=== PATIENT | male | born 1990 | race Caucasian/White ===

== ENCOUNTER 2018-08-10 20:15 | Emergency (ER) | payer BC ==
[2018-08-10 20:20] VITALS: TEMP 98
[2018-08-10] MEDS ORDERED: SODIUM CHLORIDE 0.9% 500 ML 500 ML IV STA (22:10)
[2018-08-10] MEDS ORDERED: ONDANSETRON 4 MG/2 ML VIAL IVP STA (22:10)
[2018-08-10 22:29] VITALS: BP 121/78; PULSE 77; RESP 20
[2018-08-10 22:32] LABS: Basophils % (A) 0 %; Eosinophils # (A) 0.1 k/uL (0-0.7); Eosinophils % (A) 1 %; HGB 16.1 gm/dL (13.0-17.5); Lymphocytes # (A) 0.6 k/uL (1.0-4.8); Lymphocytes % (A) 7 %; MCH 30.6 pg (25.0-35.0); MCHC 34.9 g/dL (31.0-37.0); MCV 87.6 fL (80.0-100.0); Mean Platelet Volume 7.7; Monocytes # (A) 0.5 k/uL (0-1.0); Monocytes % (A) 5 %; Neutrophils # (A) 8.3 k/uL (1.3-7.7); Neutrophils % (A) 86 %; Platelet Count 199 k/uL (150-450); RBC 5.25 m/uL (4.30-5.90); RDW 12.5 % (11.5-15.5); WBC 9.7 k/uL (3.8-10.6)
[2018-08-10 22:49] LABS: ALT 43 U/L (21-72); AST 36 U/L (17-59); Albumin 4.5 g/dL (3.5-5.0); Alkaline Phosphatase 87 U/L (38-126); Amylase 72 U/L (30-110); Anion Gap 10 mmol/L; Blood Urea Nitrogen 14 mg/dL (9-20); Calcium 9.8 mg/dL (8.4-10.2); Carbon Dioxide 26 mmol/L (22-30); Chloride 102 mmol/L (98-107); Glucose 97 mg/dL (74-99); Lipase 94 U/L (23-300); Potassium 3.9 mmol/L (3.5-5.1); Sodium 138 mmol/L (137-145); Total Bilirubin 1.1 mg/dL (0.2-1.3); Total Protein 7.9 g/dL (6.3-8.2)
[2018-08-11] MEDS ORDERED: SODIUM CHLORIDE 0.9% 1,000 ML BAG ONE (02:04)
[2018-08-11] MEDS ORDERED: FAMOTIDINE 20 MG/2 ML VIAL ONE (02:04)
== END 2018-08-11 02:04 | disposition home or self-care (01) ==
LOC: EC 20:15
DX: R10.13 Epigastric pain (principal); R11.2 Nausea with vomiting, unspecified; Z91.09 Other allergy status, other than to drugs and biological substances
CPT/HCPCS: 36415; 80053; 82150; 83690; 85025; 99284; 96374; 96375; 96376; 96361; J2405

== ENCOUNTER 2019-06-18 05:57 | Emergency (ER) | payer BC ==
[2019-06-18 06:06] VITALS: TEMP 98.3
[2019-06-18] MEDS ORDERED: SODIUM CHLORIDE 0.9% 1,000 ML IV STA (06:29)
[2019-06-18] MEDS ORDERED: KETOROLAC 30 MG/ML 1 ML VIAL IVP STA (06:30)
--- NOTE | 2019-06-18 06:33 | ED ---
General Adult HPI - General Source: patient, RN notes reviewed, old records reviewed Mode of arrival: wheelchair Limitations: no limitations <Good Hernandez - Last Filed: 06/18/19 06:55> <Good Pham - Last Filed: 06/18/19 08:25> - General Chief complaint: Nausea/Vomiting/Diarrhea Stated complaint: Weak, light headed Time Seen by Provider: 06/18/19 06:07 - History of Present Illness Initial comments: 28-year-old male history of bipolar depression presenting for evaluation of anxiety, headache, and abdominal pain with nausea. Patient states his symptoms began this morning he had felt like he was having a panic attack. He has had issues in the past with panic attacks. He also reports an associated headache which is biparietal, periumbilical abdominal pain nausea. He admits to hyperventilating and knows that this is associated with panic attacks. He does feel somewhat anxious but is uncertain why he is anxious. Denies suicidal or homicidal ideation. He admits to alcohol consumption, denies drugs of abuse. (Good Hernandez) - Related Data Home Medications Medication Instructions Recorded Confirmed No Known Home Medications 08/10/18 08/10/18 Allergies Allergy/AdvReac Type Severity Reaction Status Date / Time Sulfa (Sulfonamide Allergy Rash/Hives Verified 06/18/19 06:06 Antibiotics) prochlorperazine AdvReac Unknown Verified 06/18/19 06:06 [From Compazine] Review of Systems ROS Other: All systems not noted in ROS Statement are negative. <Good Hernandez - Last Filed: 06/18/19 06:55> ROS Other: All systems not noted in ROS Statement are negative. <Good Pham - Last Filed: 06/18/19 08:25> ROS Statement: Those systems with pertinent positive or pertinent negative responses have been documented in the HPI. Past Medical History Past Medical History: No Reported History History of Any Multi-Drug Resistant Organisms: None Reported Past Surgical History: No Surgical Hx Reported Additional Past Surgical History / Comment(s): Mood disorder Past Psychological History: No Psychological Hx Reported Smoking Status: Former smoker Past Alcohol Use History: Occasional Past Drug Use History: None Reported <Good Hernandez - Last Filed: 06/18/19 06:55> General Exam Limitations: no limitations General appearance: alert, in no apparent distress Head exam: Present: atraumatic, normocephalic Eye exam: Present: normal appearance, PERRL ENT exam: Present: mucous membranes dry Neck exam: Present: normal inspection. Absent: tenderness, meningismus Respiratory exam: Present: normal lung sounds bilaterally. Absent: respiratory distress, wheezes Cardiovascular Exam: Present: normal rhythm GI/Abdominal exam: Present: soft, tenderness (Minimal periumbilical tenderness). Absent: distended Extremities exam: Present: normal inspection, normal capillary refill, pedal edema. Absent: calf tenderness Neurological exam: Present: alert, oriented X3, CN II-XII intact. Absent: motor sensory deficit Psychiatric exam: Present: depressed, anxious, flat affect. Absent: suicidal ideation Skin exam: Present: warm, dry, intact. Absent: cyanosis, diaphoretic <Good Hernandez - Last Filed: 06/18/19 06:55> Course Vital Signs 06/18/19 06:03 Temperature 98.3 F Pulse Rate 98 Respiratory 32 H Rate Blood Pressure 126/67 O2 Sat by Pulse 100 Oximetry EKG Findings - EKG Comments: EKG Findings:: EKG: Normal sinus rhythm rate of 87, MO interval 150, QRS duration 100, QTC 452, T-wave flattening in inferior leads and lateral precordial leads. <Good Hernandez - Last Filed: 06/18/19 06:55> Medical Decision Making - Lab Data Result diagrams: 06/18/19 06:34 <Good Hernandez - Last Filed: 06/18/19 06:55> - Lab Data Result diagrams: 06/18/19 06:34 06/18/19 06:34 - Radiology Data Radiology results: report reviewed (I did review the imaging and report no acute findings.), image reviewed <Good Pham - Last Filed: 06/18/19 08:25> - Medical Decision Making I did reevaluate the patient. He is feeling improved he did state he had an episode of lightheadedness during x-ray but sensitivities felt fine. Imaging was reviewed as well as lab work. Patient will be discharged the presentation is consistent with a panic attack as well as likely some (Good Pham) - Lab Data Lab Results 06/18/19 06/18/19 06/18/19 Range/Units 06:34 06:34 06:34 WBC 10.0 (3.8-10.6) k/uL RBC 5.15 (4.30-5.90) m/uL Hgb 15.3 (13.0-17.5) gm/dL Hct 45.4 (39.0-53.0) % MCV 88.0 (80.0-100.0) fL MCH 29.7 (25.0-35.0) pg MCHC 33.7 (31.0-37.0) g/dL RDW 11.9 (11.5-15.5) % Plt Count 199 (150-450) k/uL Neutrophils % 85 % Lymphocytes % 5 % Monocytes % 6 % Eosinophils % 1 % Basophils % 2 % Neutrophils # 8.5 H (1.3-7.7) k/uL Lymphocytes # 0.5 L (1.0-4.8) k/uL Monocytes # 0.6 (0-1.0) k/uL Eosinophils # 0.1 (0-0.7) k/uL Basophils # 0.2 (0-0.2) k/uL Sodium 139 (137-145) mmol/L Potassium 3.5 (3.5-5.1) mmol/L Chloride 103 (98-107) mmol/L Carbon Dioxide 25 (22-30) mmol/L Anion Gap 11 mmol/L BUN 13 (9-20) mg/dL Creatinine 0.95 (0.66-1.25) mg/dL Est GFR (CKD-EPI)AfAm >90 (>60 ml/min/1.73 sqM) Est GFR (CKD-EPI)NonAf >90 (>60 ml/min/1.73 sqM) Glucose 111 H (74-99) mg/dL Calcium 9.9 (8.4-10.2) mg/dL Total Bilirubin 1.1 (0.2-1.3) mg/dL AST 34 (17-59) U/L ALT 37 (21-72) U/L Alkaline Phosphatase 92 (38-126) U/L Total Protein 8.1 (6.3-8.2) g/dL Albumin 4.6 (3.5-5.0) g/dL Lipase 60 (23-300) U/L Urine Color Yellow Urine Appearance Clear (Clear) Urine pH 8.5 H (5.0-8.0) Ur Specific [place] 1.018 (1.001-1.035) Urine Protein Trace H (Negative) Urine Glucose (UA) Negative (Negative) Urine Ketones Negative (Negative) Urine Blood Negative (Negative) Urine Nitrite Negative (Negative) Urine Bilirubin Negative (Negative) Urine Urobilinogen 2.0 (<2.0) mg/dL Ur Leukocyte Esterase Trace H (Negative) Urine RBC 1 (0-5) /hpf Urine WBC <1 (0-5) /hpf Urine Mucus Rare H (None) /hpf Urine Opiates Screen Not Detected (NotDetected) Ur Oxycodone Screen Not Detected (NotDetected) Urine Methadone Screen Not Detected (NotDetected) Ur Propoxyphene Screen Not Detected (NotDetected) Ur Barbiturates Screen Not Detected (NotDetected) U Tricyclic Antidepress Not Detected (NotDetected) Ur Phencyclidine Scrn Not Detected (NotDetected) Ur Amphetamines Screen Not Detected (NotDetected) U Methamphetamines Scrn Not Detected (NotDetected) U Benzodiazepines Scrn Not Detected (NotDetected) Urine Cocaine Screen Not Detected (NotDetected) U Marijuana (THC) Screen Not Detected (NotDetected) Serum Alcohol <10 mg/dL Disposition <Good Hernandez - Last Filed: 06/18/19 06:55> Is patient prescribed a controlled substance at d/c from ED?: No <Good Pham - Last Filed: 06/18/19 08:25> Clinical Impression: Spastic colon, Anxiety Disposition: HOME SELF-CARE Condition: Good Instructions (If sedation given, give patient instructions): Anxiety (ED), Irritable Bowel Syndrome (ED) Referrals: None,Stated [Primary Care Provider] - 1-2 days
[2019-06-18 06:53] LABS: Basophils # (A) 0.2 k/uL (0-0.2); Basophils % (A) 2 %; Eosinophils # (A) 0.1 k/uL (0-0.7); Eosinophils % (A) 1 %; HCT 45.4 % (39.0-53.0); HGB 15.3 gm/dL (13.0-17.5); Lymphocytes # (A) 0.5 k/uL (1.0-4.8); Lymphocytes % (A) 5 %; MCH 29.7 pg (25.0-35.0); MCHC 33.7 g/dL (31.0-37.0); Mean Platelet Volume 7.7; Monocytes # (A) 0.6 k/uL (0-1.0); Monocytes % (A) 6 %; Neutrophils # (A) 8.5 k/uL (1.3-7.7); Neutrophils % (A) 85 %; Platelet Count 199 k/uL (150-450); RBC 5.15 m/uL (4.30-5.90); RDW 11.9 % (11.5-15.5)
[2019-06-18 07:03] LABS: ALT 37 U/L (21-72); AST 34 U/L (17-59); African American GFR (CKD) >90 (>60 ml/min/1.73 sqM); Albumin 4.6 g/dL (3.5-5.0); Alcohol <10 mg/dL; Alkaline Phosphatase 92 U/L (38-126); Anion Gap 11 mmol/L; Blood Urea Nitrogen 13 mg/dL (9-20); Calcium 9.9 mg/dL (8.4-10.2); Carbon Dioxide 25 mmol/L (22-30); Chloride 103 mmol/L (98-107); Glucose 111 mg/dL (74-99); Potassium 3.5 mmol/L (3.5-5.1); Sodium 139 mmol/L (137-145); Total Bilirubin 1.1 mg/dL (0.2-1.3); Total Protein 8.1 g/dL (6.3-8.2)
[2019-06-18 07:05] LABS: Appearance,Urine Clear (Clear); Bilirubin,Urine Negative (Negative); Blood,Urine Negative (Negative); Color,Urine Yellow; Glucose,Urine (UA) Negative (Negative); Ketones,Urine Negative (Negative); Leukocyte Esterase,Urine Trace (Negative); Mucus,Urine Rare /hpf; Nitrite,Urine Negative (Negative); PH, Urine 8.5 (5.0-8.0); Protein,Urine Trace (Negative); RBC,Urine 1 /hpf (0-5); Specific Gravity,Urine 1.018 (1.001-1.035); WBC,Urine <1 /hpf (0-5)
[2019-06-18 07:20] LABS: Amphetamine Screen,Urine Not Detected (NotDetected); Barbiturate Screen,Urine Not Detected (NotDetected); Benzodiazepines Screen,Urine Not Detected (NotDetected); Cocaine Screen,Urine Not Detected (NotDetected); Methadone Screen, Urine Not Detected (NotDetected); Opiate Screen,Urine Not Detected (NotDetected); Oxycodone Screen, Urine Not Detected (NotDetected); Phencyclidine Screen,Urine Not Detected (NotDetected); Tricyclic Antidepressant,Urine Not Detected (NotDetected); Urn Cannabinoid Scrn Not Detected (NotDetected)
--- NOTE | 2019-06-18 07:39 | XR ---
EXAMINATION TYPE: XR KUB , 2 VIEWS DATE OF EXAM ORDERED: 06/18/2019 HISTORY: ab pain. COMPARISON: None. FINDINGS: The lung bases are clear. Within the abdomen, the abdominal gas pattern is normal. There is no evidence of obstruction or free air. No unusual calcifications are seen. IMPRESSION: NO ACUTE INTRA-ABDOMINAL ABNORMALITY.
[2019-06-18 08:47] VITALS: BP 138/76; PULSE 76; RESP 16
== END 2019-06-18 08:30 | disposition home or self-care (01) ==
LOC: EC 05:57
DX: K58.9 Irritable bowel syndrome, unspecified (principal); F41.9 Anxiety disorder, unspecified; R42 Dizziness and giddiness; F32.9 Major depressive disorder, single episode, unspecified; Z87.891 Personal history of nicotine dependence; Z88.2 Allergy status to sulfonamides; Z88.8 Allergy status to other drugs, medicaments and biological substances
CPT/HCPCS: 36415; 93005; 80053; 83690; 85025; 81001; 80306; 80320; 74018; 96374; 96361; 99285; J1885

== ENCOUNTER → 2025-01-17 | Outpatient (CLI) | payer BC | END | disposition home or self-care (01) | LOC: LABWHC1 10:57 | DX: Z02.83 Encounter for blood-alcohol and blood-drug test (principal) | CPT/HCPCS: 36415 ==